=== PATIENT | male | born 1965 | race Caucasian/White ===

== ENCOUNTER 2025-02-02 13:51 | Emergency (ER) | payer MEDICARE, MEDICAID ==
[~2025-02-02] VITALS: Ht 177.8 cm; Wt 70.4 kg
[2025-02-02 14:57] LABS: BASOPHILS # (AUTO) 0.1 X10'3 (0-0.2); EOSINOPHILS % (AUTO) 0.1 % (0-6); HEMATOCRIT 48.3 % (42.0-52.0); HEMOGLOBIN 16.6 g/dl (14.0-17.9); LYMPHOCYTES % (AUTO) 11.2 % (21-51); MEAN CORPUSCULAR HEMOGLOBIN 33.5 PG (27.0-31.0); MEAN CORPUSCULAR HGB CONC 34.3 g/dL (33.0-36.5); MEAN CORPUSCULAR VOLUME 97.4 FL (78-98); MEAN PLATELET VOLUME 8.8 FL (7.4-10.4); MONOCYTES # (AUTO) 0.5 X10'3 (0-0.9); NEUTROPHILS # (AUTO) 7.1 X10'3 (1.8-7.7); NEUTROPHILS % (AUTO) 81.7 % (42-75); PLATELET COUNT 266 X10'3 (140-440); RED BLOOD COUNT 4.95 X10'6 (4.70-6.10); RED CELL DISTRIBUTION WIDTH 16.3 % (11.5-14.5); WHITE BLOOD COUNT 8.7 X10'3 (4.5-11.0)
[2025-02-02 15:15] LABS: ALANINE AMINOTRANSFERASE 43 U/L (12-78); ALBUMIN 4.1 G/DL (3.4-5.0); ALBUMIN/GLOBULIN RATIO 1.2 (1.1-1.5); ALKALINE PHOSPHATASE 111 IU/L (46-116); ANION GAP 13 (8-16); ASPARTATE AMINO TRANSFERASE 48 U/L (10-37); BILIRUBIN,TOTAL 0.9 MG/DL (0.1-1.0); BLOOD UREA NITROGEN 14 MG/DL (7-18); BUN/CREATININE RATIO 16.1 (10.0-20.0); CALCIUM 8.8 MG/DL (8.5-10.1); CHLORIDE 99 MMOL/L (99-107); CREATININE 0.87 MG/DL (0.60-1.10); GLUCOSE 74 MG/DL (70-104); LIPASE 21 U/L (16-77); POTASSIUM 3.9 MMOL/L (3.5-5.1); SODIUM 138 MMOL/L (135-145); TOTAL CARBON DIOXIDE 25.6 MMOL/L (24-32); TOTAL PROTEIN 7.6 G/DL (6.4-8.2); eCRCL 89 ML/MIN; eGFR 89 ML/MIN
[2025-02-02 17:37] LABS: BILIRUBIN,URINE SMALL (Neg); CLARITY,URINE CLEAR (Clear); COLOR,URINE YELLOW (Yellow); GLUCOSE, URINE NEGATIVE (Neg); KETONES,URINE 40 mg/dl (Neg); LEUKOCYTE ESTERASE ,URINE NEGATIVE (Neg); OCCULT BLOOD,URINE NEGATIVE (Neg); PROTEIN,URINE TRACE mg/dl (Neg)
[2025-02-02 17:48] LABS: NITRITES, URINE NEGATIVE (Neg); UA COLLECTION TYPE VOIDED
[2025-02-02 17:54] LABS: AMORPHOUS URATES 1+; BACTERIA,URINE NONE SEEN /HPF (Neg); MUCUS STRANDS NONE SEEN /LPF (Neg); RBC,URINE 0-2 /HPF (0-2); SQUAMOUS EPITHELIAL CELL,UR FEW /LPF (FEW); WBC,URINE 0-4 /HPF (0-4)
--- NOTE | 2025-02-02 18:22 | Physician Documentation ---
History of Present Illness ~ General Chief Complaint: See Chief Complaint Stated Complaint: LIGHT HEADED Time Seen by MD: 18:00 Source: patient, EMS, EMS notes reviewed Mode of Arrival: EMS, Dropped Off History of Present Illness Initial Comments Chief Complaint: It is unclear of the complaints. Caveat: , history obtained by writing. Patient is an extremely poor historian. Independent Historians: History of Present Illness: Patient is a 59-year-old man who smokes and drinks alcohol. Patient is brought in by paramedics from the street. Patient states that he has fallen a couple of times but can not tell me when. Patient states that he has some liver pain. However he is not currently in any pain. Patient does not recall exactly when this started. The patient is unable to answer questions. He seems to be focused on chronic symptoms. When asked if he has vomiting he says dry heaves. When asked for how long he says often. I am unable to get any answers regarding onset of any acute symptoms. [place] if he has diarrhea he states that he has often and "had some not too long ago. Patient seems to have many chronic complaints. When asked if he has chest pain he s tates that he has had heart attacks before and that he had 2 lb his chest. History was obtained by writing out questions for him to read yet he still could not seem to answer him despite being able to read the questions. Review of systems: All systems were reviewed and are negative except for what is indicated in the history of present illness. Past Medical History: strokes", heart attacks, COPD Past Surgical History: Unknown Social History: No tobacco use, no alcohol use, no drug use Medications: Reviewed as documented Nursing Notes Allergies: Reviewed as documented in Nursing Notes Medication Reconciliation Allergies: Coded Allergies: No Known Allergies (Unverified , 02/02/25) Review of Systems Unable to obtain complete ROS: other (Patient is unable to answer questions despite repeated writing out of questions.) Physical Exam Physical Exam Vital Signs: RN Vital Signs have been reviewed: Yes, Temperature: 99.0, Source: Oral, Heart Rate: 65, Respiratory Rate: 18, BP: 152/97, Pulse Oximetry: 98, Weight: 70.400 Oxygen Flow Rate: 0 Pulse Oximetry Reflects: adequate oxygenation Physical Exam General Appearance: No distress, chronically ill-appearing, disheveled, poor hygiene HEENT: Normal OP, moist oral mucosa, PERRL, EOMI, atraumatic Neck: supple, normal ROM, trachea midline Pulmonary: No respiratory distress, CTA, BS equal Cardiac: RRR, no murmur, rub or gallop, GI: nondistended, soft, nontender, normal bowel sounds, no guarding, no rebound Extremities: normal ROM, no swelling, non-tender Skin: intact, dry, warm, no rashes Neuro: AAOx3, speech is clear, no focal motor weakness Psych: normal affect, good eye contact, no apparent hallucination, normal speech Progress Results/Orders Results/Orders Orders - MELANIE ROSEN MD [facility] (02/02/25 18:29) Vital Signs 02/02/25 02/02/25 02/02/25 02/02/25 13:57 17:24 17:29 19:18 Temp 99.0 99.0 99.2 Pulse 98 65 78 Resp 16 18 18 16 B/P (MAP) 139/98 152/97 (115) 146/62 (90) Pulse Ox 98 98 98 O2 Flow Rate 0 0 Laboratory Tests Test 02/02/25 14:17 02/02/25 17:16 White Blood Count 8.7 Red Blood Count 4.95 Hemoglobin 16.6 Hematocrit 48.3 Mean Corpuscular Volume 97.4 Mean Corpuscular Hemoglobin 33.5 H Mean Corpuscular Hemoglobin Concent 34.3 Red Cell Distribution Width 16.3 H Platelet Count 266 Mean Platelet Volume 8.8 Neutrophils (%) (Auto) 81.7 H Lymphocytes (%) (Auto) 11.2 L Monocytes (%) (Auto) 6.0 Eosinophils (%) (Auto) 0.1 Basophils (%) (Auto) 1.0 Neutrophils # (Auto) 7.1 Lymphocytes # (Auto) 1.0 L Monocytes # (Auto) 0.5 Eosinophils # (Auto) 0.0 Basophils # (Auto) 0.1 CBC Comment Sodium Level 138 Potassium Level 3.9 Chloride Level 99 Carbon Dioxide Level 25.6 Anion Gap 13 Blood Urea Nitrogen 14 Creatinine 0.87 Estimated GFR/1.73 m2 89 BUN/Creatinine Ratio 16.1 Glucose Level 74 Calcium Level 8.8 Total Bilirubin 0.9 Aspartate Amino Transf (AST/SGOT) 48 H Alanine Aminotransferase (ALT/SGPT) 43 Alkaline Phosphatase 111 Total Protein 7.6 Albumin 4.1 Globulin 3.5 Albumin/Globulin Ratio 1.2 Lipase 21 Chemistry Comments Urine Specimen Description Voided Urine Color Yellow Urine Clarity Clear Urine pH 6.0 Urine Specific [place] 1.020 Urine Protein Trace Urine Glucose (UA) Negative Urine Ketones 40 H Urine Occult Blood Negative Urine Nitrite Negative Urine Bilirubin Small Urine Urobilinogen 1.0 Urine Leukocyte Esterase Negative Urine RBC 0-2 Urine WBC 0-4 Urine Squamous Epithelial Cells Few Urine Amorphous Urates 1+ Urine Bacteria None seen Urine Coarse Granular Casts Urine Mucus None seen Urine Culture Indicated Not ind Volume Urine Centrifuged 10 ml Urine Comment Medical Decision Making Additional info obtained from: old records (This is the patient's 1st visit to this hospital no prior records for review) Findings Differential diagnosis includes but is not limited to: Pneumonia, COPD, dehydration, alcohol intoxication, substance abuse, intra-abdominal infection, NSTEMI Chest x-ray, single view, indication: Dizziness Independent interpretation: Hyperinflation of the lungs, lungs are clear without infiltrates or pleural effusion, flat hemidiaphragms consistent with COPD. Normal mediastinum. Normal cardiac silhouette. No acute cardiopulmonary process. Laboratory data independent interpretation: CBC: Unremarkable CMP: Unremarkable Urinalysis: Unremarkable Emergency department course/medical decision-making: Patient does not appear to have any acute medical or surgical emergency. Patient's physical exam is consistent with COPD however there is no evidence of exacerbation or pneumonia or congestive heart failure. Patient isn't having any chest pain at this time. Patient has CBC, CMP and urinalysis that are unremarkable with no evidence to suggest infection. Patient's abdominal exam is unremarkable. Patient's mental status is thought to be at baseline and he is neurologically intact. There was not thought to be any indication to perform Patient complains of feeling hungry and that he has not eaten in two days. Patient does have some ketones in his urine consistent with not eating. Patient will be given food and he is stable for discharge. Departure Disposition: HOME / SELF CARE / HOMELESS Impression: Primary Impression: Encounter for medical screening examination Condition: Stable Discharge Instructions: Medical Screening Exam Additional Instructions: FOLLOW UP WITH YOUR PRIMARY CARE DOCTOR. YOUR LAB WORK WAS UNREMARKABLE. Education Educated: Patient Educated regarding: diagnosis, treatment, need for follow up Signature Scribe Signature: No scribe Attestation: No scribe MELANIE ROSEN MD February 02, 2025 18:22
--- NOTE | 2025-02-02 18:50 | RADIOLOGY REPORT ---
DI CHEST,TWO VIEWS INDICATION: symptomatic TECHNIQUE: Two views of the chest COMPARISON: None FINDINGS/IMPRESSION: LUNGS: No pleural effusion, consolidation, or pneumothorax MEDIASTINUM: Unremarkable BONES: No acute osseous abnormality OTHER: None
[2025-02-02 19:18] VITALS: BP 146/62; PULSE 78; RESP 16; TEMP 99.2; O2SAT 98
== END 2025-02-02 19:36 | disposition home or self-care (01) ==
LOC: ER 13:51
DX: Z00.8 Encounter for other general examination (principal); J44.9 Chronic obstructive pulmonary disease, unspecified; Z86.73 Personal history of transient ischemic attack (TIA), and cerebral infarction without residual deficits
CPT/HCPCS: 36415; 71046; 80053; 81001; 83690; 85025; 99284